=== PATIENT | female | born 1975 | race African-American/Black ===

== ENCOUNTER 2020-08-16 08:25 | Emergency (ER) | payer OTHER ==
[2020-08-16 08:33] VITALS: BMI 357.7
[2020-08-16] MEDS ORDERED: SODIUM CHLORIDE 1,000 ML IV STA (08:55)
[2020-08-16] MEDS ORDERED: FAMOTIDINE 20 MG/50 ML IVPB 20 MG/50 ML MG IVPB ONE (08:55)
[2020-08-16] MEDS ORDERED: METOCLOPRAMIDE HCL INJECTION 10 MG/2 ML VIAL IVPB ONE (08:55)
[2020-08-16 09:55] LABS: BASO % 0.6 % (0-2.0); EOS % 0.1 % (0-4.5); HEMOGLOBIN 12.6 GM/dL (10.7-15.3); LYMPH % 35.5 % (8-40); MCH 25.2 pg (25.7-33.7); MCHC 30.7 g/dl (32.0-36.0); MEAN CELL VOLUME 82.2 fl (80-96); MEAN PLT VOLUME 9.2 fl (7.5-11.1); MONO % 9.7 % (3.8-10.2); NEUT % 54.1 % (42.8-82.8); PLATELET COUNT 226 K/MM3 (134-434); RBC 4.99 M/mm3 (3.60-5.2); RDW 17.5 % (11.6-15.6); WHITE BLOOD COUNT 5.4 K/mm3 (4.0-10.0)
[2020-08-16 10:02] LABS: POTASSIUM 4.7 mmol/L (3.5-5.1)
[2020-08-16 10:04] LABS: CALCIUM 8.9 mg/dL (8.5-10.1)
[2020-08-16 10:05] LABS: ALBUMIN 3.4 g/dl (3.4-5.0); BLOOD UREA NITROGEN 18.5 mg/dL (7-18)
[2020-08-16 10:08] LABS: CREATININE 1.1 mg/dL (0.55-1.3)
[2020-08-16 10:09] LABS: BILIRUBIN,TOTAL 0.9 mg/dL (0.2-1); TOT PROT 8.2 g/dl (6.4-8.2)
[2020-08-16 12:00] LABS: HCG,QUALITATIVE URINE Negative
[2020-08-16 12:03] LABS: EPI CELLS 12 /uL (0-25.1); HYALINE CASTS 1 /uL (0-3.1); URINE APPEARANCE CLEAR; URINE BACTERIA 430 /uL (0-1359); URINE BILIRUBIN NEGATIVE (NEGATIVE); URINE COLOR YELLOW; URINE GLUCOSE (UA) NEGATIVE (NEGATIVE); URINE KETONE TRACE (NEGATIVE); URINE LEUK ESTERASE NEGATIVE (NEGATIVE); URINE NITRITE NEGATIVE (NEGATIVE); URINE PROTEIN NEGATIVE (NEGATIVE); URINE RBC 12 /uL (0-23.9); URINE UROBILINOGEN 0.2 mg/dL (0.2-1.0); URINE WBC 22 /uL (0-25.8)
[2020-08-16 12:06] VITALS: BP 129/86; PULSE 86; TEMP 98.3
== END 2020-08-16 12:06 | disposition home or self-care (01) ==
LOC: JER 08:25
PROC: 3E033NZ Introduction of Analgesics, Hypnotics, Sedatives into Peripheral Vein, Percutaneous Approach (ICD-10-PCS; principal; 2020-08-16)
PROC: 3E033GC Introduction of Other Therapeutic Substance into Peripheral Vein, Percutaneous Approach (ICD-10-PCS; 2020-08-16)
PROC: 3E0337Z Introduction of Electrolytic and Water Balance Substance into Peripheral Vein, Percutaneous Approach (ICD-10-PCS; 2020-08-16)
DX: R10.13 Epigastric pain (principal); K29.00 Acute gastritis without bleeding
CPT/HCPCS: 36415; 76705-TC; 80053; 81003; 83690; 84703; 85025; 87086; 99285-25

== ENCOUNTER 2020-08-23 05:23 | Day surgery (SDC) | payer OTHER ==
[2020-08-20 10:56] VITALS: BMI 42.4
[2020-08-23] MEDS ORDERED: PROPOFOL 20 ML ONE (10:29)
[2020-08-23] MEDS ORDERED: MIDAZOLAM HCL 2 MG/2 ML SINGLE DOSE VIAL ONE (10:30)
[2020-08-23 13:59] VITALS: BP 100/62; PULSE 82; TEMP 97.8
== END 2020-08-23 13:15 | disposition home or self-care (01) ==
LOC: JASU-SURG 05:23
PROVIDERS: ATTEND Urology
PROC: 0TF4XZZ Fragmentation in Left Kidney Pelvis, External Approach (ICD-10-PCS; principal; 2020-08-23 10:00)
DX: N20.0 Calculus of kidney (principal)
CPT/HCPCS: 84703

== ENCOUNTER 2020-10-06 08:36 | Emergency (ER) | payer OTHER ==
[2020-10-06 08:52] VITALS: BP 109/77; PULSE 73; TEMP 97.6; BMI 43.2
[2020-10-06] MEDS ORDERED: FAMOTIDINE 20 MG/50 ML IVPB 20 MG/50 ML MG IVPB ONE ×2 (09:53→09:58)
[2020-10-06] MEDS ORDERED: SODIUM CHLORIDE 0.9% 500 ML INFUS.BAG IV ONE (09:53)
[2020-10-06 10:33] LABS: BASO % 2.2 % (0-2.0); EOS % 0.5 % (0-4.5); HEMATOCRIT 38.5 % (32.4-45.2); HEMOGLOBIN 12.4 GM/dL (10.7-15.3); LYMPH % 37.1 % (8-40); MCH 25.8 pg (25.7-33.7); MCHC 32.2 g/dl (32.0-36.0); MEAN CELL VOLUME 80.3 fl (80-96); MEAN PLT VOLUME 9.7 fl (7.5-11.1); MONO % 9.7 % (3.8-10.2); NEUT % 50.5 % (42.8-82.8); PLATELET COUNT 241 K/MM3 (134-434); RDW 16.6 % (11.6-15.6); WHITE BLOOD COUNT 4.8 K/mm3 (4.0-10.0)
[2020-10-06 10:58] LABS: POTASSIUM 4.6 mmol/L (3.5-5.1)
[2020-10-06 11:01] LABS: ALBUMIN 3.4 g/dl (3.4-5.0)
[2020-10-06 11:04] LABS: CREATININE 1.1 mg/dL (0.55-1.3)
[2020-10-06 11:05] LABS: BILIRUBIN,TOTAL 0.6 mg/dL (0.2-1); TOT PROT 8.2 g/dl (6.4-8.2)
[2020-10-06] MEDS ORDERED: LIDOCAINE VISCOUS 2% ORAL/TOP 20 ML UNIT-DOSE CUP MM ONE (11:50)
[2020-10-06] MEDS ORDERED: MAG HYDROX/AL HYDROX/SIMETH 30 ML UNIT-DOSE CUP PO ONE (11:50)
[2020-10-06] MEDS ORDERED: LIDOCAINE VISCOUS 2% ORAL/TOP 20 ML UNIT-DOSE CUP ONE (11:53)
[2020-10-06] MEDS ORDERED: MAG HYDROX/AL HYDROX/SIMETH 30 ML UNIT-DOSE CUP ONE (11:54)
[2020-10-06] MEDS ORDERED: SUCRALFATE 1 GM TABLET (FP) PO ONE (12:43)
[2020-10-06] MEDS ORDERED: PANTOPRAZOLE 40 MG TABLET PO ONE (12:44)
[2020-10-06] MEDS ORDERED: PANTOPRAZOLE 40 MG TABLET ONE (12:50)
[2020-10-06] MEDS ORDERED: SUCRALFATE 1 GM TABLET (FP) ONE (12:50)
== END 2020-10-06 13:40 | disposition home or self-care (01) ==
LOC: JER 08:36
PROC: 3E033NZ Introduction of Analgesics, Hypnotics, Sedatives into Peripheral Vein, Percutaneous Approach (ICD-10-PCS; principal; 2020-10-06)
DX: R10.13 Epigastric pain (principal)
CPT/HCPCS: 36415; 80053; 83690; 85025; 99285-25

== ENCOUNTER 2020-11-17 11:08 | Emergency (ER) | payer OTHER ==
[2020-11-17 11:13] VITALS: BP 123/88; PULSE 93; BMI 41.5
[2020-11-17] MEDS ORDERED: KETOROLAC TROMETHAMINE 30 MG/1 ML VIAL IM ONE (11:41)
[2020-11-17] MEDS ORDERED: KETOROLAC TROMETHAMINE 30 MG/1 ML VIAL ONE (11:55)
== END 2020-11-17 13:01 | disposition home or self-care (01) ==
LOC: JER 11:08
DX: S63.502A Unspecified sprain of left wrist, initial encounter (principal); Y99.9 Unspecified external cause status
CPT/HCPCS: 93971; 99283-25

== ENCOUNTER 2021-02-24 08:45 | Emergency (ER) | payer OTHER ==
[2021-02-24 09:04] VITALS: BP 118/81; PULSE 76; TEMP 98.4; BMI 37.4
[2021-02-24] MEDS ORDERED: METOCLOPRAMIDE HCL INJECTION 10 MG/2 ML VIAL IVPB ONE (09:07)
[2021-02-24] MEDS ORDERED: SODIUM CHLORIDE 1,000 ML IV STA (09:07)
[2021-02-24] MEDS ORDERED: ACETAMINOPHEN 1000 MG/100 ML VIAL (NON FORMULARY) IVPB ONE (09:07)
[2021-02-24] MEDS ORDERED: ACETAMINOPHEN INJECTION 100 ML IVPB ONE (09:15)
[2021-02-24] MEDS ORDERED: METOCLOPRAMIDE HCL INJECTION 10 MG/2 ML VIAL ONE (09:15)
== END 2021-02-24 12:20 | disposition home or self-care (01) ==
LOC: JER 08:45
PROC: 3E033NZ Introduction of Analgesics, Hypnotics, Sedatives into Peripheral Vein, Percutaneous Approach (ICD-10-PCS; principal; 2021-02-24)
PROC: 3E033GC Introduction of Other Therapeutic Substance into Peripheral Vein, Percutaneous Approach (ICD-10-PCS; 2021-02-24)
PROC: 3E0337Z Introduction of Electrolytic and Water Balance Substance into Peripheral Vein, Percutaneous Approach (ICD-10-PCS; 2021-02-24)
DX: R51.9 Headache, unspecified (principal)
CPT/HCPCS: 99284-25; J0131

== ENCOUNTER 2021-10-04 10:53 | Emergency (ER) | payer OTHER ==
[2021-10-04 11:15] VITALS: PULSE 76; BMI 40.4
[2021-10-04 11:16] VITALS: TEMP 97.9
[2021-10-04 12:05] LABS: EOS % 0.4 % (0-4.5); HEMATOCRIT 36.5 % (32.4-45.2); HEMOGLOBIN 11.8 GM/dL (10.7-15.3); LYMPH % 29.6 % (8-40); MCH 25.4 pg (25.7-33.7); MCHC 32.4 g/dl (32.0-36.0); MEAN CELL VOLUME 78.2 fl (80-96); MONO % 8.5 % (3.8-10.2); NEUT % 60.5 % (42.8-82.8); PLATELET COUNT 246 10^3/uL (134-434); RBC 4.67 M/mm3 (3.60-5.2); RDW 17.2 % (11.6-15.6); WHITE BLOOD COUNT 4.7 K/mm3 (4.0-10.0)
[2021-10-04 12:14] LABS: INR 1.14 (0.83-1.09); PROTHROMBIN TIME (PATIENT) 13.1 SEC (9.7-13.0)
[2021-10-04 12:17] LABS: ACTIVATED PTT 25.5 SECONDS (25.2-36.5)
[2021-10-04 12:25] LABS: CALCIUM 8.8 mg/dL (8.5-10.1)
[2021-10-04 12:26] LABS: ALBUMIN 3.2 g/dl (3.4-5.0); MAGNESIUM 2.1 mg/dL (1.8-2.4)
[2021-10-04 12:29] LABS: CREATININE 1.1 mg/dL (0.55-1.3); PHOSPHOROUS 2.9 mg/dL (2.5-4.9)
[2021-10-04 12:30] LABS: BILIRUBIN,TOTAL 0.3 mg/dL (0.2-1); TOT PROT 7.3 g/dl (6.4-8.2)
[2021-10-04 14:21] VITALS: BP 111/77
== END 2021-10-04 14:38 | disposition home or self-care (01) ==
LOC: JER 10:53
DX: M79.89 Other specified soft tissue disorders (principal)
CPT/HCPCS: 36415; 71045-TC-FY; 80053; 83735; 84100; 85025; 85610; 85730; 93971; 93971-TC; 99284-25

== ENCOUNTER 2021-11-18 23:09 | Emergency (ER) | payer OTHER ==
[2021-11-18 23:14] VITALS: BP 118/78; PULSE 92; TEMP 97; BMI 41.4
[2021-11-18] MEDS ORDERED: ACETAMINOPHEN 500 MG TABLET (FP) PO ONE (23:37)
[2021-11-19] MEDS ORDERED: ACETAMINOPHEN 325 MG TABLET (FP) ONE (00:27)
[2021-11-19 00:32] LABS: BASO % 0.7 % (0-2.0); EOS % 0.4 % (0-4.5); HEMATOCRIT 37.8 % (32.4-45.2); HEMOGLOBIN 11.9 GM/dL (10.7-15.3); LYMPH % 20.5 % (8-40); MCH 24.9 pg (25.7-33.7); MCHC 31.4 g/dl (32.0-36.0); MEAN CELL VOLUME 79.3 fl (80-96); MEAN PLT VOLUME 8.2 fl (7.5-11.1); MONO % 6.5 % (3.8-10.2); NEUT % 71.9 % (42.8-82.8); PLATELET COUNT 261 10^3/uL (134-434); RBC 4.77 M/mm3 (3.60-5.2); RDW 16.8 % (11.6-15.6); WHITE BLOOD COUNT 9.3 K/mm3 (4.0-10.0)
[2021-11-19 00:56] LABS: ALBUMIN 3.7 g/dl (3.4-5.0); CALCIUM 9.1 mg/dL (8.5-10.1)
[2021-11-19 00:59] LABS: CREATININE 1.1 mg/dL (0.55-1.3)
[2021-11-19 01:01] LABS: BILIRUBIN,TOTAL 0.2 mg/dL (0.2-1)
== END 2021-11-19 04:13 | disposition home or self-care (01) ==
LOC: JER 23:09
DX: M94.0 Chondrocostal junction syndrome [Tietze] (principal)
CPT/HCPCS: 36415; 71046-TC-FY; 80053; 84484; 85025; 93005; 93010; 99285-25

== ENCOUNTER 2021-12-22 10:23 | Emergency (ER) | payer OTHER ==
[2021-12-22 10:34] VITALS: BP 125/87; PULSE 79; TEMP 97.9; BMI 41.5
[2021-12-23 12:08] LABS: SARS-CoV-2 NAA Not Detected (Not Detected)
== END 2021-12-22 12:37 | disposition home or self-care (01) ==
LOC: JERFT 10:23
DX: J06.9 Acute upper respiratory infection, unspecified (principal); R05.1 Acute cough; R09.81 Nasal congestion
CPT/HCPCS: 71046-TC-FY; 99284-25; C9803-CS; U0003; U0005

== ENCOUNTER 2022-05-22 09:16 | Emergency (ER) | payer OTHER ==
[2022-05-22 09:32] VITALS: BP 122/85; PULSE 68; RESP 18; TEMP 98; BMI 39.4
[2022-05-22] MEDS ORDERED: KETOROLAC TROMETHAMINE 30 MG/1 ML VIAL IM ONE (09:51)
[2022-05-22] MEDS ORDERED: KETOROLAC TROMETHAMINE 30 MG/1 ML VIAL ONE (09:59)
== END 2022-05-22 11:35 | disposition home or self-care (01) ==
LOC: JERFT 09:16
PROC: 3E0233Z Introduction of Anti-inflammatory into Muscle, Percutaneous Approach (ICD-10-PCS; principal; 2022-05-22)
DX: M25.512 Pain in left shoulder (principal)
CPT/HCPCS: 73030-TC-LT-FY; 99284-25

== ENCOUNTER 2022-05-29 05:11 | Day surgery (SDC) | payer OTHER ==
[2022-05-25 13:44] VITALS: BMI 39.4
[2022-05-29 07:43] VITALS: RESP 18
[2022-05-29] MEDS ORDERED: PROPOFOL 20 ML ONE (09:53)
[2022-05-29] MEDS ORDERED: MIDAZOLAM HCL 2 MG/2 ML SINGLE DOSE VIAL ONE (09:53)
[2022-05-29] MEDS ORDERED: KETOROLAC TROMETHAMINE 30 MG/1 ML VIAL ONE (09:53)
[2022-05-29 11:39] VITALS: BP 144/98; PULSE 78; TEMP 97.8
== END 2022-05-29 11:45 | disposition home or self-care (01) ==
LOC: JASU-SURG 05:11
PROVIDERS: ATTEND Urology
PROC: 0TF3XZZ Fragmentation in Right Kidney Pelvis, External Approach (ICD-10-PCS; principal; 2022-05-29 09:30)
DX: N20.0 Calculus of kidney (principal)
CPT/HCPCS: 81025

== ENCOUNTER 2022-08-16 07:32 | Emergency (ER) | payer OTHER ==
[2022-08-16 07:58] VITALS: BP 117/83; PULSE 80; RESP 20; TEMP 98.1; BMI 39.4
[2022-08-16] MEDS ORDERED: DEXAMETHASONE SOD PHOSPHATE 10 MG/1 ML VIAL IM ONE (08:21)
[2022-08-16] MEDS ORDERED: KETOROLAC TROMETHAMINE 30 MG/1 ML VIAL IM ONE (08:21)
[2022-08-16] MEDS ORDERED: KETOROLAC TROMETHAMINE 30 MG/1 ML VIAL ONE (09:15)
[2022-08-16] MEDS ORDERED: DEXAMETHASONE SOD PHOSPHATE 10 MG/1 ML VIAL ONE (09:15)
== END 2022-08-16 09:40 | disposition home or self-care (01) ==
LOC: JERFT 07:32
PROC: 3E023GC Introduction of Other Therapeutic Substance into Muscle, Percutaneous Approach (ICD-10-PCS; principal; 2022-08-16)
DX: M54.41 Lumbago with sciatica, right side (principal)
CPT/HCPCS: 93971-TC; 99284-25; J1100

== ENCOUNTER 2022-08-18 04:01 | Day surgery (SDC) | payer OTHER ==
[2022-08-17 11:37] VITALS: BMI 39.3
[2022-08-18] MEDS ORDERED: LIDOCAINE HCL/PF 1% SDV 5ML VIAL ONE ×2 (07:26→08:29)
[2022-08-18] MEDS ORDERED: DEXAMETHASONE SOD PHOSPHATE 10 MG/1 ML VIAL ONE ×2 (07:26→08:29)
[2022-08-18] MEDS ORDERED: DEXAMETHASONE SOD PHOSPHATE 4 MG/1 ML VIAL ONE (08:29)
[2022-08-18] MEDS ORDERED: IOHEXOL 180 MG/1 ML ML IJ ONE (10:22)
[2022-08-18] MEDS ORDERED: DEXAMETHASONE SOD PHOSPHATE 10 MG/1 ML VIAL IVPUSH ONE (10:23)
[2022-08-18] MEDS ORDERED: LIDOCAINE HCL 1%, 10 MG/ML (50 mL VIAL) INF ONE (10:23)
[2022-08-18 11:06] VITALS: RESP 18; TEMP 98
[2022-08-18 11:51] VITALS: BP 136/70; PULSE 77
== END 2022-08-18 11:40 | disposition home or self-care (01) ==
LOC: JASU-SURG 04:01
PROVIDERS: ATTEND Pain Medicine Pain Medicine
PROC: 3E0R33Z Introduction of Anti-inflammatory into Spinal Canal, Percutaneous Approach (ICD-10-PCS; 2022-08-18)
PROC: 3E0R3BZ Introduction of Anesthetic Agent into Spinal Canal, Percutaneous Approach (ICD-10-PCS; principal; 2022-08-18 09:30)
DX: M54.16 Radiculopathy, lumbar region (principal)
CPT/HCPCS: 76000-TC-FY; 81025; J1100

== ENCOUNTER 2022-10-31 16:02 | Emergency (ER) | payer OTHER ==
[2022-10-31 16:10] VITALS: BP 139/89; PULSE 89; RESP 16; TEMP 98; BMI 37.8
[2022-10-31] MEDS ORDERED: KETOROLAC TROMETHAMINE 30 MG/1 ML VIAL IM ONE (16:47)
[2022-10-31] MEDS ORDERED: KETOROLAC TROMETHAMINE 30 MG/1 ML VIAL ONE (16:51)
== END 2022-10-31 16:59 | disposition home or self-care (01) ==
LOC: JERFT 16:02 → JER 16:02 → JERFT 16:59
PROC: 3E023GC Introduction of Other Therapeutic Substance into Muscle, Percutaneous Approach (ICD-10-PCS; principal; 2022-10-31)
DX: M54.31 Sciatica, right side (principal)
CPT/HCPCS: 99284-25

== ENCOUNTER 2022-11-10 04:13 | Day surgery (SDC) | payer OTHER ==
[2022-11-06 16:42] VITALS: BMI 38.0
[~2022-11-10 04:13] MED LIST: DEXAMETHASONE SOD PHOSPHATE 10 MG/1 ML VIAL IVPUSH ONE; IOHEXOL 180 MG/1 ML ML IJ ONE; LIDOCAINE 1% P/F 10 MG/ML VIAL PNB ONE
[2022-11-10] MEDS ORDERED: SODIUM CHLORIDE 0.9% P/F 10 ML VIAL IJ ONE (07:50)
[2022-11-10 11:16] VITALS: RESP 20
[2022-11-10] MEDS ORDERED: LIDOCAINE 1% P/F 10 MG/ML VIAL PNB ONE (11:35)
[2022-11-10] MEDS ORDERED: DEXAMETHASONE SOD PHOSPHATE 10 MG/1 ML VIAL IVPUSH ONE (11:35)
[2022-11-10] MEDS ORDERED: IOHEXOL 180 MG/1 ML ML IJ ONE (11:35)
[2022-11-10 15:07] VITALS: BP 105/68; PULSE 75; TEMP 98.8
== END 2022-11-10 12:35 | disposition home or self-care (01) ==
LOC: JASU-SURG 04:13
PROVIDERS: ATTEND Pain Medicine Pain Medicine
PROC: 3E0R3BZ Introduction of Anesthetic Agent into Spinal Canal, Percutaneous Approach (ICD-10-PCS; 2022-11-10)
PROC: 3E0R33Z Introduction of Anti-inflammatory into Spinal Canal, Percutaneous Approach (ICD-10-PCS; principal; 2022-11-10 12:15)
DX: M54.16 Radiculopathy, lumbar region (principal)
CPT/HCPCS: 76000-TC-FY; J1100